=== PATIENT | female | born 1995 | race Caucasian/White ===

== ENCOUNTER 2016-09-06 05:32 | Emergency (ER) | payer BC ==
[~2016-09-06] VITALS: Ht 167.6 cm; Wt 59.1 kg
[2016-09-06 05:37] VITALS: BP 108/52; TEMP 98.1
[2016-09-06] MEDS ORDERED: ZOFRAN ODT4 MG PO (06:34)
[2016-09-06] MEDS ORDERED: VOLTAREN 75 DR75 MG PO (06:34)
[2016-09-06 07:00] VITALS: PULSE 99
== END 2016-09-06 07:08 | disposition home or self-care (01) ==
LOC: COL.ER 05:32
DX: G89.18 Other acute postprocedural pain (principal); M25.571 Pain in right ankle and joints of right foot
CPT/HCPCS: J1885

== ENCOUNTER → 2016-12-20 | Outpatient (CLI) | payer BC ==
[~2016-12-20] MED LIST: VOLTAREN 75 DR75 MG PO; ZOFRAN ODT4 MG PO
== END ==
LOC: BHSO 10:47
DX: F40.10 Social phobia, unspecified (principal)

== ENCOUNTER 2017-02-16 10:32 | Emergency (ER) | payer BC ==
[~2017-02-16] VITALS: Ht 167.6 cm; Wt 61.4 kg
[2017-02-16 10:35] VITALS: TEMP 98.4
[2017-02-16] MEDS ORDERED: ANTIVERT 25MG25 MG PO (10:39)
[2017-02-16] MEDS ORDERED: KLONOPIN 0.5MG0.5 MG PO (10:40)
[2017-02-16] MEDS ORDERED: XANAX 0.5MG0.5 MG PO (10:40)
[2017-02-16 11:17] LABS: BASO % 0.6 % (0.0-2.0); EOS % 0.2 % (0-4.0); GRAN # 3.4 (1.4-6.5); GRAN % 64.2 % (42.2-75.2); HEMOGLOBIN 14.4 g/dl (12.5-16.0); LYMPH # 1.3 (1.2-3.4); LYMPH % 25.6 % (20.0-51.0); MEAN CELL VOLUME 94 fl (80.0-100.0); MEAN CORPUSCULAR HEMOGLOBIN 32 pg (27.0-31.0); MEAN CORPUSCULAR HGB CONC 34 g/dl (33.0-37.0); MEAN PLATELET VOLUME 11.3 fl (7.4-10.4); MONO # 0.5 (0.1-0.6); MONO % 9.2 % (1.7-9.3); PLATELET COUNT 173 K/mm3 (130-400); RED BLOOD COUNT 4.56 M/mm3 (4.10-5.30); WHITE BLOOD COUNT 5.2 K/mm3 (4.8-10.8)
[2017-02-16 11:32] LABS: ADJUSTED CALCIUM 8.8 mg/dL (8.4-10.2); ALBUMIN 4.9 gm/dL (3.5-5.0); BILIRUBIN,TOTAL 0.8 mg/dL (0.0-1.0); CALCIUM 9.5 mg/dL (8.4-10.2); CREATININE, serum 0.76 mg/dL (0.52-1.25); TOTAL PROTEIN 8.1 gm/dL (6.4-8.2)
[2017-02-16 12:22] VITALS: BP 112/60; PULSE 77
== END 2017-02-16 12:38 | disposition home or self-care (01) ==
LOC: COL.ER 10:32
PROVIDERS: Emergency Medicine
DX: S09.90XA Unspecified injury of head, initial encounter (principal); I95.1 Orthostatic hypotension; W22.8XXA Striking against or struck by other objects, initial encounter; Y92.009 Unspecified place in unspecified non-institutional (private) residence as the place of occurrence of the external cause
CPT/HCPCS: J1885; J7030

== ENCOUNTER 2017-05-12 07:36 | Emergency (ER) | payer BC ==
[~2017-05-12] VITALS: Ht 167.6 cm; Wt 59.0 kg
[~2017-05-12 07:36] MED LIST changes: +ANTIVERT 25MG25 MG PO; +KLONOPIN 0.5MG0.5 MG PO; +XANAX 0.5MG0.5 MG PO
[2017-05-12 07:39] VITALS: TEMP 97.5
[2017-05-12 08:10] LABS: COLLECTION METHOD CLEAN CATCH
[2017-05-12 08:27] LABS: MUCOUS Present /lpf; PH 5 (5-8); URINE APPEARANCE Turbid; URINE BACTERIA Rare /hpf; URINE BILIRUBIN Negative (NEGATIVE); URINE BLOOD 2+ (NEGATIVE); URINE COLOR Amber; URINE GLUCOSE Negative (NEGATIVE); URINE KETONE Negative (NEGATIVE); URINE LEUKOCYTE ESTERASE 3+ (NEGATIVE); URINE NITRATE Negative (NEGATIVE); URINE PROTEIN(semi-quant) 1+ (NEGATIVE); URINE RBC >50 /hpf; URINE UROBILINOGEN Negative (NEGATIVE)
[2017-05-12] MEDS ORDERED: CEPHALEXIN500 M1 PO (08:39)
[2017-05-12] MEDS ORDERED: DIFLUCAN200 MG PO (08:45)
[2017-05-12] MEDS ORDERED: PYRIDIUM200 M1 PO (08:45)
[2017-05-12 09:37] VITALS: BP 101/589; PULSE 75
== END 2017-05-12 09:38 | disposition home or self-care (01) ==
LOC: COL.ER 07:36
PROVIDERS: Physician Assistant
DX: N39.0 Urinary tract infection, site not specified (principal)

== ENCOUNTER → 2017-11-29 | Emergency (ER) | payer BC ==
[~2017-11-29] VITALS: Ht 167.6 cm; Wt 56.8 kg
[~2017-11-29] MED LIST changes: +CEPHALEXIN500 M1 PO; +DIFLUCAN200 MG PO; +MACROBID 1100 MG/CAP PO; +PYRIDIUM200 M1 PO
[2017-11-29 15:06] VITALS: TEMP 99
[2017-11-29 15:53] LABS: COLLECTION METHOD CLEAN CATCH
[2017-11-29 16:04] LABS: BASO % 0.4 % (0.0-2.0); EOS % 0.2 % (0-4.0); GRAN # 2.9 (1.4-6.5); GRAN % 61.4 % (42.2-75.2); HEMOGLOBIN 14.6 g/dl (12.5-16.0); LYMPH # 1.4 (1.2-3.4); LYMPH % 28.6 % (20.0-51.0); MEAN CELL VOLUME 95 fl (80.0-100.0); MEAN CORPUSCULAR HEMOGLOBIN 32 pg (27.0-31.0); MEAN CORPUSCULAR HGB CONC 34 g/dl (33.0-37.0); MEAN PLATELET VOLUME 11.2 fl (7.4-10.4); MONO # 0.4 (0.1-0.6); MONO % 9.2 % (1.7-9.3); PLATELET COUNT 183 K/mm3 (130-400); RED BLOOD COUNT 4.52 M/mm3 (4.10-5.30); REDCELL DISTRIBUTION WIDTH-CV 11.4 % (11.5-14.5)
[2017-11-29 16:21] LABS: ALBUMIN 4.6 gm/dL (3.5-5.0); BILIRUBIN,TOTAL 1.2 mg/dL (0.0-1.0); CALCIUM 9.1 mg/dL (8.4-10.2); CREATININE, serum 0.72 mg/dL (0.52-1.25); POTASSIUM 3.9 mmol/L (3.4-5.0); TOTAL PROTEIN 7.6 gm/dL (6.4-8.2)
[2017-11-29 16:29] LABS: MUCOUS Present /lpf; PH 5 (5-8); URINE APPEARANCE Cloudy; URINE BACTERIA Many /hpf; URINE BILIRUBIN Negative (NEGATIVE); URINE BLOOD Negative (NEGATIVE); URINE COLOR Yellow; URINE GLUCOSE Negative (NEGATIVE); URINE KETONE Trace (NEGATIVE); URINE LEUKOCYTE ESTERASE 2+ (NEGATIVE); URINE NITRATE Negative (NEGATIVE); URINE PROTEIN(semi-quant) Negative (NEGATIVE); URINE RBC 0-2 /hpf; URINE UROBILINOGEN Negative (NEGATIVE)
[2017-11-29 16:50] LABS: TRICYCLIC ANTIDEPRESS URINE NEGATIVE
[2017-11-29 17:20] VITALS: BP 97/55; PULSE 76
== END ==
LOC: COL.ER 14:55
PROVIDERS: Nurse Practitioner Primary Care
DX: N39.0 Urinary tract infection, site not specified (principal); R42 Dizziness and giddiness; F12.90 Cannabis use, unspecified, uncomplicated; Z98.890 Other specified postprocedural states; G47.00 Insomnia, unspecified

== ENCOUNTER 2018-04-05 13:04 | Emergency (ER) | payer BC ==
[~2018-04-05] VITALS: Ht 167.6 cm; Wt 61.4 kg
[2018-04-05 13:06] VITALS: BP 112/57; TEMP 98
[2018-04-05 13:37] LABS: COLLECTION METHOD CLEAN CATCH
[2018-04-05 13:43] LABS: MUCOUS Present /lpf; PH 6 (5-8); URINE APPEARANCE Clear; URINE BACTERIA Rare /hpf; URINE BILIRUBIN Negative (NEGATIVE); URINE BLOOD Negative (NEGATIVE); URINE COLOR Yellow; URINE GLUCOSE Negative (NEGATIVE); URINE KETONE Negative (NEGATIVE); URINE LEUKOCYTE ESTERASE Negative (NEGATIVE); URINE NITRATE Negative (NEGATIVE); URINE PROTEIN(semi-quant) Negative (NEGATIVE); URINE RBC 0-2 /hpf; URINE UROBILINOGEN Negative (NEGATIVE)
[2018-04-05 14:52] VITALS: PULSE 81
== END 2018-04-05 14:52 | disposition home or self-care (01) ==
LOC: COL.ER 13:04
PROVIDERS: Physician Assistant
DX: O99.352 Diseases of the nervous system complicating pregnancy, second trimester (principal); G43.909 Migraine, unspecified, not intractable, without status migrainosus; Z3A.14 14 weeks gestation of pregnancy
CPT/HCPCS: J2405; J2550; J7030

== ENCOUNTER 2018-05-26 19:27 | Emergency (ER) | payer MEDICAID ==
[~2018-05-26] VITALS: Ht 167.6 cm; Wt 63.6 kg
[2018-05-26 19:33] VITALS: TEMP 98.4
[2018-05-26 20:03] LABS: COLLECTION METHOD CLEAN CATCH
[2018-05-26 20:16] LABS: PH 6 (5-8); SQUAMOUS EPITHELIAL 0-2 /hpf; URINE APPEARANCE Clear; URINE BACTERIA Rare /hpf; URINE BILIRUBIN Negative (NEGATIVE); URINE BLOOD Negative (NEGATIVE); URINE COLOR Colorless; URINE GLUCOSE Negative (NEGATIVE); URINE KETONE Negative (NEGATIVE); URINE LEUKOCYTE ESTERASE Negative (NEGATIVE); URINE NITRATE Negative (NEGATIVE); URINE PROTEIN(semi-quant) Negative (NEGATIVE); URINE RBC 0-2 /hpf; URINE UROBILINOGEN Negative (NEGATIVE)
[2018-05-26] MEDS ORDERED: PRENATAL MVI (20:55)
[2018-05-26] MEDS ORDERED: FLAGYL500 MG PO (21:11)
[2018-05-26 21:20] VITALS: BP 103/69; PULSE 94
== END 2018-05-26 21:24 | disposition home or self-care (01) ==
LOC: COL.ER 19:27
PROVIDERS: Nurse Practitioner
DX: O26.892 Other specified pregnancy related conditions, second trimester (principal); O99.342 Other mental disorders complicating pregnancy, second trimester; N76.0 Acute vaginitis; F41.9 Anxiety disorder, unspecified; B96.89 Other specified bacterial agents as the cause of diseases classified elsewhere; Z88.5 Allergy status to narcotic agent; Z88.1 Allergy status to other antibiotic agents; Z90.89 Acquired absence of other organs; Z3A.21 21 weeks gestation of pregnancy

== ENCOUNTER 2018-10-08 02:54 | Inpatient (IN) | payer MEDICAID ==
[2018-10-08] VITALS (58 sets, daily range): BP systolic 87–151; BP diastolic 49–116; PULSE 71–137; TEMP 97.3–98.8
[~2018-10-08] VITALS: Ht 167.6 cm; Wt 86.2 kg
[~2018-10-08 02:54] MED LIST changes: +FLAGYL500 MG PO; +PRENATAL MVI
--- NOTE | 2018-10-08 03:00 | NUR ---
G1L0. 40-4. Ambulatory to LDR 5 with significant other. Clean gown on. EFM and TOCO explained and applied. Pt states she has been having contractions every 5 minutes apart since 0100. Denies LOF or vaginal bleeding. Reports good movement. SVE 5/90/-2 bolgy bag noted. Plan of care explained. Pt wanting an epidural. Will continue to monitor. 0317,0334 & 0353: attempted to call. See physican notification. 0355: on unit and admit orders received. See physican notification. 0407: IV started and labs obtained via IV site. LR bolus infusing. Gui ONEAL on unit and updated on epidural. 0422: Pt assisted to EOB for epidural. Gui ONEAL at bedside and procedure explained. Difficulty tracing FHR due to maternal position. Pulse ox applied. 0436: Test dose administered by JM Messer. See anesthesia records 0441: Pt assisted to wedge left position per request. Plan of care and safety precautions explained. 0535: Rdz inserted without difficulties. SVE 6-7/90/-2. Pt repositioned to wedge right position and peanut ball placed. Plan of care explained.
[2018-10-08 04:15] LABS: BASO % 0.4 % (0.0-2.0); EOS % 0.4 % (0-4.0); GRAN # 8.4 (1.4-6.5); HEMOGLOBIN 11.9 g/dl (12.5-16.0); LYMPH # 1.6 (1.2-3.4); LYMPH % 13.9 % (20.0-51.0); MEAN CELL VOLUME 91 fl (80.0-100.0); MEAN CORPUSCULAR HEMOGLOBIN 30 pg (27.0-31.0); MEAN CORPUSCULAR HGB CONC 33 g/dl (33.0-37.0); MEAN PLATELET VOLUME 11.9 fl (7.4-10.4); MONO % 9.1 % (1.7-9.3); PLATELET COUNT 140 K/mm3 (130-400); RED BLOOD COUNT 3.94 M/mm3 (4.10-5.30); REDCELL DISTRIBUTION WIDTH-CV 12.4 % (11.5-14.5)
[2018-10-08 04:16] LABS: HEMATOCRIT 35.8 % (37.0-47.0)
--- NOTE | 2018-10-08 07:45 | NUR ---
SVE: /-1 with bulgy bag of [place]. Pt denies any pain. Repositioned to wedged left with peanut ball. Family at bedside. Plan of care reviewed. Dr Marvin to follow pt and will be here to evaluate.
--- NOTE | 2018-10-08 08:15 | NUR ---
Dr Marvin here and updated on pt status. SVE: /-1. AROM, clear fluid noted. Pericare done and pt repositioned to left side.
--- NOTE | 2018-10-08 09:15 | NUR ---
SVE: no cervical change, contractions every 6 minutes apart. Orders received to start pitocin. 0930:Pitocin started at 2mu per order.
--- NOTE | 2018-10-08 10:30 | NUR ---
SVE: /-1. Pt respositioned to sitting up position.
--- NOTE | 2018-10-08 13:10 | NUR ---
Dr Marvin here, SVE: complete +1. Pt instructed on pushing with contractions and 1315, pt begins pushing.
--- NOTE | 2018-10-08 13:40 | NUR ---
pt feeling nauseated and vomits 300cc emesis x 2. 1420: Zofran given, see emar.
--- NOTE | 2018-10-08 14:30 | NUR ---
Pt continues to push with contractions, making progress. Pt crying and repeatedly is stating "I can't do this anymore" 1441:Dr Marvin called and updated on pt. Pt may take a break if needed and will continue to push. Pt refuses to take a break from pushing and continues to push. 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 1539:Dr Marvin called for delivery. 1548:Dr Marvin here. Pt continues to push with contractions, pt tired and crying stating "I can't do this anymore." Dr Marvin gives pt option of placing a vacuum and pt refuses. Pt continues to push. 1619: of 's head and shoulders. Cord clamped and to mothers abd and in care of Radha TORREZ. 1624:Spontaneous delivery of placenta. LR with pitocin infusing at 333ml/hr without difficulty. Pt with large gush of blood, orders received for methergine. Methergine given IM at 1626, see emar. Side wall lacerations repaired by physician. Pt continues to have some clots and moderate amt of free flow with massage. Order received for cytotec, see emar. 1700:Fundus firm, bleeding WNL at this time. Pericare done and new ice pack and pads placed. Pt resting in bed at this time.
--- NOTE | 2018-10-08 21:00 | NUR ---
2024- Patient pivoted to wheelchair to go to restroom. Patient states "I'm just not all there and weak". Patient pivoted from wheelchair to toilet and attempted to urinate for approximately 20 minutes without success. Patient visibly upset about having to be catheterized and has increased anxiety. Plan of care and process of catheter explained in depth to patient. 2044- Patient was straight cathed on toilet with 800ml urine out. Patient pivoted to wheelchair from toilet and was moved to room at this time.
[2018-10-09] VITALS: BP 104/57; PULSE 102; TEMP 100.2
[2018-10-09 04:00] VITALS: BP 99/54; PULSE 77; TEMP 98.3
[2018-10-09 07:36] VITALS: BP 97/59; PULSE 79; TEMP 98.2
[2018-10-09 08:05] LABS: HEMOGLOBIN 10.7 g/dl (12.5-16.0); MEAN CELL VOLUME 92 fl (80.0-100.0); MEAN CORPUSCULAR HEMOGLOBIN 30 pg (27.0-31.0); MEAN CORPUSCULAR HGB CONC 33 g/dl (33.0-37.0); MEAN PLATELET VOLUME 11.7 fl (7.4-10.4); PLATELET COUNT 132 K/mm3 (130-400); RED BLOOD COUNT 3.52 M/mm3 (4.10-5.30); REDCELL DISTRIBUTION WIDTH-CV 12.8 % (11.5-14.5)
[2018-10-09 08:09] LABS: HEMATOCRIT 32.5 % (37.0-47.0)
--- NOTE | 2018-10-09 10:31 | NUR ---
Initial visit; Parents thanked for offering congratulations for the of their son. thanked family for choosing [facility].
[2018-10-09] MEDS ORDERED: IBU800 M1 PO (10:56)
[2018-10-09] MEDS ORDERED: PERCOCET 325 MG1 TA2 PO (10:56)
[2018-10-09 11:07] VITALS: BP 101/55; PULSE 90; TEMP 98.6
[2018-10-09 16:30] VITALS: BP 99/50; PULSE 82; TEMP 98.2
[2018-10-09 21:00] VITALS: BP 102/53; PULSE 83; TEMP 98.4
== END 2018-10-10 10:45 | disposition home or self-care (01) | DRG 806 ==
LOC: LDRO 02:54 → LDR 03:27 → OB 03:27
PROVIDERS: Obstetrics & Gynecology; Student in an Organized Health Care Education/Training Program; ADMIT Obstetrics & Gynecology
PROC: 10E0XZZ Delivery of Products of Conception, External Approach (ICD-10-PCS; principal; 2018-10-08)
PROC: 0UQGXZZ Repair Vagina, External Approach (ICD-10-PCS; 2018-10-08)
DX: O99.344 Other mental disorders complicating childbirth (principal); O99.12 Other diseases of the blood and blood-forming organs and certain disorders involving the immune mechanism complicating childbirth; Z37.0 Single live birth; O71.4 Obstetric high vaginal laceration alone; F32.9 Major depressive disorder, single episode, unspecified; F41.9 Anxiety disorder, unspecified; D69.6 Thrombocytopenia, unspecified; O99.62 Diseases of the digestive system complicating childbirth; K21.9 Gastro-esophageal reflux disease without esophagitis; O62.2 Other uterine inertia; O90.81 Anemia of the puerperium; D64.9 Anemia, unspecified; O75.81 Maternal exhaustion complicating labor and delivery; Z3A.40 40 weeks gestation of pregnancy
CPT/HCPCS: J2210; J2405; J2590; J7120

== ENCOUNTER 2021-03-18 23:32 | Emergency (ER) | payer OTHER ==
[~2021-03-18] VITALS: Ht 167.6 cm; Wt 70.9 kg
[~2021-03-18 23:32] MED LIST changes: +IBU800 M1 PO; +PERCOCET 325 MG1 TA2 PO
[2021-03-18 23:36] VITALS: TEMP 98
[2021-03-18 23:57] LABS: COLLECTION METHOD CLEAN CATCH
[2021-03-19 00:07] LABS: MUCOUS Present (NOT PRESENT); PH 6 (5-8); SQUAMOUS EPITHELIAL 0-2 /hpf (0-10); URINE APPEARANCE Clear (CLEAR/HAZY); URINE BACTERIA Rare (NONE SEEN); URINE BILIRUBIN Negative (NEGATIVE); URINE BLOOD 1+ (NEGATIVE); URINE COLOR Yellow (YELLOW); URINE GLUCOSE Negative (NEGATIVE); URINE KETONE Negative (NEGATIVE); URINE LEUKOCYTE ESTERASE Negative (NEGATIVE); URINE NITRATE Negative (NEGATIVE); URINE PROTEIN(semi-quant) Negative (NEGATIVE); URINE RBC 0-2 /hpf (0-2); URINE UROBILINOGEN Negative (NEGATIVE)
[2021-03-19 00:25] LABS: BASO % 0.5 % (0.0-2.0); EOS # 0.1 K/mm3 (0.0-0.7); EOS % 1.3 % (0-4.0); GRAN # 3.1 K/mm3 (1.4-6.5); GRAN % 56.2 % (42.2-75.2); HEMOGLOBIN 13.2 g/dl (12.5-16.0); LYMPH # 1.9 K/mm3 (1.2-3.4); LYMPH % 33.9 % (20.0-51.0); MEAN CELL VOLUME 91 fl (80.0-100.0); MEAN CORPUSCULAR HEMOGLOBIN 30 pg (27.0-31.0); MEAN CORPUSCULAR HGB CONC 33 g/dl (33.0-37.0); MEAN PLATELET VOLUME 11.7 fl (7.4-10.4); MONO # 0.4 K/mm3 (0.1-0.6); MONO % 7.7 % (1.7-9.3); PLATELET COUNT 204 K/mm3 (130-400); REDCELL DISTRIBUTION WIDTH-CV 11.9 % (11.5-14.5)
[2021-03-19 00:32] LABS: ALBUMIN 4.2 gm/dL (3.5-5.0); BILIRUBIN,TOTAL 0.3 mg/dL (0.2-1.2); CALCIUM 9.1 mg/dL (8.4-10.2); CREATININE, serum 0.88 mg/dL (0.57-1.11); POTASSIUM 3.8 mmol/L (3.5-4.5); TOTAL PROTEIN 7.5 gm/dL (6.2-8.1)
[2021-03-19] MEDS ORDERED: PRILOSEC 20MG20 MG PO (00:47)
[2021-03-19 00:56] VITALS: BP 102/65; PULSE 77
== END 2021-03-19 00:56 | disposition home or self-care (01) ==
LOC: COL.ER 23:32
PROVIDERS: Emergency Medicine
DX: R10.10 Upper abdominal pain, unspecified (principal); Z32.02 Encounter for pregnancy test, result negative
CPT/HCPCS: J7030